=== PATIENT | male | born 1965 | race Caucasian/White ===

== ENCOUNTER → 2020-09-19 16:48 | Outpatient (BNVA) | payer BC, SELFPAY | PROVIDERS: Family Provider Family Medicine; PCP Family Medicine; Visit Provider Nurse Practitioner Family | DX: Z20.828 Contact with and (suspected) exposure to other viral communicable diseases (principal) | CPT/HCPCS: 87635 ==

== ENCOUNTER → 2020-09-24 10:31 | Outpatient (BNVA) | payer BC, SELFPAY | PROVIDERS: Family Provider Family Medicine; PCP Family Medicine; Visit Provider Emergency Medicine | DX: Z20.828 Contact with and (suspected) exposure to other viral communicable diseases (principal) | CPT/HCPCS: 87635 ==

== ENCOUNTER → 2020-10-05 11:29 | Outpatient (BNVA) | payer BC, SELFPAY | PROVIDERS: Family Provider Family Medicine; PCP Family Medicine; Referring Provider Nurse Practitioner Family; Visit Provider Nurse Practitioner Family | DX: Z20.828 Contact with and (suspected) exposure to other viral communicable diseases (principal) | CPT/HCPCS: 87635 ==

== ENCOUNTER → 2020-12-16 09:46 | Outpatient (BNVA) | payer BC, SELFPAY | PROVIDERS: Family Provider Family Medicine; PCP Family Medicine; Referring Provider Family Medicine; Visit Provider Family Medicine | DX: Z13.6 Encounter for screening for cardiovascular disorders (principal) | CPT/HCPCS: 80061; 82947; 83036 ==

== ENCOUNTER → 2022-02-09 09:00 | Outpatient (BNVA) | payer BC, SELFPAY | PROVIDERS: Family Provider Family Medicine; PCP Family Medicine; Referring Provider Family Medicine; Visit Provider Family Medicine | DX: E78.00 Pure hypercholesterolemia, unspecified (principal); I10 Essential (primary) hypertension | CPT/HCPCS: 80053; 80061 ==

== ENCOUNTER 2022-07-13 06:51 | Day surgery (SDC) | payer BC, SELFPAY ==
[2022-07-11 09:19] VITALS: BMI 31.3
[2022-07-13 07:04] VITALS: BP 150/94; PULSE 81; RESP 18; TEMP 36.1; O2SAT 99
[2022-07-13] MEDS: sodium chloride 0.9% 1,000 ML 30 ML IV (07:16)
--- NOTE | 2022-07-13 07:55 | P.ANESASSM_ITS ---
Pre-Anesthetic Assessment Height/Weight: Height 1.7 m Weight 90.718 kg Temp Pulse Resp BP Pulse Ox O2 Del Method 97 F L 81 18 150/94 99 07/13/22 07:04 07/13/22 07:04 07/13/22 07:04 07/13/22 07:04 07/13/22 07:04 07/13/22 07:04 Preop Diagnosis: screening Operation Date: 07/13/22 08:30 Proposed Procedures p Colonoscopy 65162,Z12.11,K59.00,R19.5(Not Applicable) - Rodney Choi DO Familial anesthetic complications: emotional Was Beta Mar taken within 24 hours: N/A Was Clonidine taken within 24 hours: N/A Last intake: Intake Last Liquid Date 07/12/22 Last Liquid Time 21:00 Last Solid Date 07/11/22 Last Solid Time 19:00 Social Alcohol (occasional) and No tobacco Exam alert, oriented x 3, clear to auscultation bilaterally and regular rate & rhythm Airway Submandibular: within normal limits Cervical ROM: within normal limits Mallampati: Class II Dentition: full Comments: Comments: some missing Pulmonary Asthma and Sleep Apnea CV/HEM Hypertension None reported Hepatic None reported GI Gastroesophageal Reflux Disease Metabolic Hyperlipidemia [facility] [place] None reported Neuropsych None reported Anesthetic Plan ASA status: 2 Anesthesia: MAC Risk of > 500 ml blood loss (7ml/kg in children): No Medications/Allergies Home Medications Medication Instructions Recorded Confirmed Last Taken Type albuterol sulfate 90 mcg/actuation 2 puff inhalation QID PRN 10/04/20 07/11/22 Unknown Rx aerosol inhaler (ProAir HFA) shortness of breath or wheezing 30 days #18 grams fenofibrate nanocrystallized 145 145 mg PO DAILY #90 tabs 10/31/21 07/11/22 07/12/22 Rx mg tablet lovastatin 20 mg tablet 20 mg PO DAILY 90 days #90 tabs 10/31/21 07/11/22 07/12/22 Rx olmesartan 40 1 tab PO DAILY 90 days #90 tabs 10/31/21 07/11/22 07/12/22 Rx mg-hydrochlorothiazide 12.5 mg tablet Allergies Allergy/AdvReac Type Severity Reaction Status Date / Time No Known Allergies Allergy Verified 04/20/22 08:05 Current Medications Generic Name Dose Route Start Last Admin Trade Name Freq PRN Reason Stop Dose Admin Sodium Chloride 1,000 mls @ 30 mls/hr 07/13/22 07:00 07/13/22 07:16 Sodium Chloride 0.9% IV 07/14/22 06:59 30 mls/hr .Q24H MELCHOR Administration PFSH Anesthesia Medical History Asthma Elevated cholesterol Hypertension Social History Smoking and tobacco status: never smoked Alcohol intake: never History of recent travel: No Data Anesthesia Cardiac Studies: No Data to Display
--- NOTE | 2022-07-13 07:56 | PM.HP ---
Providers/Chief Complaint Primary Care Provider: Agnieszka Champino MD Chief Complaint: encounter for screening for malignant History of Present Illness Renaldo Morris is a 57 year old male here for colonoscopy Medications/Allergies Home Medications Medication Instructions Recorded Confirmed Last Taken Type albuterol sulfate 90 mcg/actuation 2 puff inhalation QID PRN 10/04/20 07/11/22 Unknown Rx aerosol inhaler (ProAir HFA) shortness of breath or wheezing 30 days #18 grams fenofibrate nanocrystallized 145 145 mg PO DAILY #90 tabs 10/31/21 07/11/22 07/12/22 Rx mg tablet lovastatin 20 mg tablet 20 mg PO DAILY 90 days #90 tabs 10/31/21 07/11/22 07/12/22 Rx olmesartan 40 1 tab PO DAILY 90 days #90 tabs 10/31/21 07/11/22 07/12/22 Rx mg-hydrochlorothiazide 12.5 mg tablet Allergies Allergy/AdvReac Type Severity Reaction Status Date / Time No Known Allergies Allergy Verified 04/20/22 08:05 PFSH Acute PFSH: Medical History Asthma Elevated cholesterol Hypertension Social History Smoking and tobacco status: never smoked Alcohol intake: never History of recent travel: No Vitals/I&O/Wt Last Vital Signs Temp 97 F L 07/13/22 07:04 Pulse 81 07/13/22 07:04 Resp 18 07/13/22 07:04 BP 150/94 07/13/22 07:04 Pulse Ox 99 07/13/22 07:04 O2 Del Method 07/13/22 07:04 Weight last 48 hrs Weight 200 lb A&P Assessment and plan (1) Encounter for screening for malignant neoplasm of colon: Status: Acute Plan Colonoscopy Attestations Medical Necessity Statement*: Home Coding Level of Care Code Acute Gas Leak Tester for Chg Fwd Diagnoses Encounter for screening for malignant neoplasm of colon Z12.11
[2022-07-13 08:21] VITALS: BP 120/71; PULSE 68; RESP 16; TEMP 36.1; O2SAT 97
--- NOTE | 2022-07-13 08:25 | ANE.PACU2 ---
Inpatient post-anesthesia follow up: Airway intact: Yes Vital signs: Temperature 97.0 F Pulse Rate 68 Respiratory Rate 16 Blood Pressure 120/71 Pulse Oximetry 97 Oxygen Delivery Me thod Room Air Oxygen Flow Rate Fraction of Inspir ed Oxygen Hydration adequate: Yes Nausea and vomiting: No Pain level: 1 Mental status: Baseline
[2022-07-13 08:35] VITALS: BP 111/79; PULSE 60; RESP 18; O2SAT 97
== END 2022-07-13 08:49 | disposition home or self-care (01) ==
PROVIDERS: PCP Family Medicine; Visit Provider Surgery
PROC: 0DJD8ZZ Inspection of Lower Intestinal Tract, Via Natural or Artificial Opening Endoscopic (ICD-10-PCS; CPT 45378; principal; 2022-07-13 08:30)
DX: Z12.11 Encounter for screening for malignant neoplasm of colon (principal); I10 Essential (primary) hypertension; K64.4 Residual hemorrhoidal skin tags; G47.30 Sleep apnea, unspecified; K21.9 Gastro-esophageal reflux disease without esophagitis; E78.5 Hyperlipidemia, unspecified; J45.909 Unspecified asthma, uncomplicated
CPT/HCPCS: 45378; J2704; J7030

== ENCOUNTER → 2023-01-28 08:56 | Outpatient (BNVA) | payer BC, SELFPAY | PROVIDERS: PCP Family Medicine; Visit Provider Family Medicine | DX: Z12.5 Encounter for screening for malignant neoplasm of prostate (principal); E78.00 Pure hypercholesterolemia, unspecified; I10 Essential (primary) hypertension | CPT/HCPCS: 80053; 80061; G0103 ==

== ENCOUNTER → 2024-11-20 14:21 | Outpatient (BNVA) | payer BC, SELFPAY | PROVIDERS: PCP Family Medicine; Visit Provider Nurse Practitioner | DX: J20.9 Acute bronchitis, unspecified (principal) | CPT/HCPCS: 87400; 87426 ==

== ENCOUNTER → 2025-01-04 09:18 | Outpatient (BNVA) | payer BC, SELFPAY | PROVIDERS: PCP Family Medicine; Visit Provider Family Medicine | DX: E78.00 Pure hypercholesterolemia, unspecified (principal); I10 Essential (primary) hypertension; Z12.5 Encounter for screening for malignant neoplasm of prostate | CPT/HCPCS: 80053; 80061; G0103 ==